=== PATIENT | female | born 1975 | race Caucasian/White ===

== ENCOUNTER 2018-11-11 04:57 | Emergency (ER) | payer MEDICAID ==
[2018-11-11 05:26] LABS: % BASOPHILS 1.2 % (0.0-2.0); % EOSINOPHILS 3.7 % (0.0-5.0); % LYMPHOCYTES 31.9 % (20.0-50.0); % MONOCYTES 5.2 % (2.0-10.0); BASOPHILE ABSOLUTE 0.1 Th/cumm (0-0.2); EOSINOPHILE ABSOLUTE 0.3 Th/cmm (0.1-0.4); HEMATOCRIT 40.7 % (41.0-60); HEMOGLOBIN 14.1 gm/dL (12-16); LYMPHOCYTE ABSOLUTE 2.9 Th/cmm (1.5-3.0); MEAN CELL VOLUME 91.2 fl (81-100); MEAN CORPUSCULAR HEMOGLOBIN 31.6 pg (27.0-31.0); MEAN CORPUSCULAR HGB CONC 34.6 pg (28.0-36.0); MONOCYTE ABSOLUTE 0.5 Th/cmm (0.3-1.0); NEUTROPHILE ABSOLUTE 5.3 Th/cmm (1.8-8.0); PLATELET COUNT 332 Th/cmm (150-400); RED BLOOD COUNT 4.46 Mil/cmm (3.80-5.10); RED CELL DISTRIBUTION WIDTH 12.2 % (11.5-20.0); WHITE BLOOD COUNT 9.1 Th/cmm (4.8-10.8)
[2018-11-11 05:45] LABS: INR 0.9 (0.5-1.4)
[2018-11-11 05:50] LABS: URINE SOURCE CLEAN C
[2018-11-11 05:52] LABS: ALB/GLOB RATIO 1.5 (1.0-1.8); ALBUMIN 4.2 gm/dL (3.7-5.3); ALKALINE PHOSPHATASE 46 U/L (34-104); ANION GAP 11.8 (7.0-16.0); BILIRUBIN,TOTAL 0.4 mg/dL (0.3-1.0); BUN - UREA NITROGEN 13 mg/dL (7-25); CALCIUM SERUM 9.2 mg/dL (8.6-10.3); CHLORIDE 105 mEq/L (98-107); CREATININE - SERUM 0.6 mg/dL (0.6-1.2); GFR AFRICAN-AMERICAN > 60.0 ml/min (>90); GFR NON AFRICAN-AMERICAN > 60.0 ml/min; GLUCOSE 120 mg/dL (70-105); POTASSIUM SERUM 3.8 mEq/L (3.5-5.1); SGOT 17 U/L (13-39); SGPT/ALT 20 U/L (7-52); SODIUM SERUM 135 mEq/L (136-145)
[2018-11-11 05:57] LABS: URINE BILIRUBIN NEGATIVE (NEGATIVE); URINE BLOOD SMALL (NEGATIVE); URINE GLUCOSE (UA) NEGATIVE (NEGATIVE); URINE KETONE NEGATIVE (NEGATIVE); URINE LEUKOCYTE ESTERASE NEGATIVE (NEGATIVE); URINE MICROSCOPIC INDICATED? YES; URINE NITRATE NEGATIVE (NEGATIVE); URINE PH 5.5 (4.6 - 8.0); URINE PROTEIN NEGATIVE (NEGATIVE); URINE UROBILINOGEN 0.2 E.U./dL (0.2 - 1.0)
--- NOTE | 2018-11-11 05:57 | ED Physician Chart ---
ED Chief Complaint/HPI - Patient Information Date Seen:: 11/11/18 Time Seen:: 05:51 Chief Complaint:: rectal bleeding History of Present Illness:: 43 yr old female with acute blood on stool for one day some burning pain but no obvious hemmorhoidal disease denies trauma or previous episodes no vomiting diarhea fever dysuria or vaginal issues Allergies:: Allergies Allergy/AdvReac Type Severity Reaction Status Date / Time No Known Allergies Allergy Verified 11/11/18 05:09 Vitals:: Vital Signs - 8 hr 11/11/18 05:09 Temp 97.8 F HR 68 RR 18 BP 129/72 O2 Sat % 100 ED Review of Systems - Review of Systems Skin: No skin lesions Head: No headache Eyes: No loss of vision ENT: No earache Neck: No neck pain Cardio Vascular: No chest pain GI: No vomiting, No diarrhea, Hematochezia Musculoskeletal: No bone or joint pain Endocrine: No polyuria Psychiatric: No prior psych history Hematopoietic: No bruising Allergic/Immuno: No urticaria Neurological: No syncope Family Medical History - Family Member Mother History Unknown: Yes ED Labs/Radiology/EKG Results - Lab Results Results: Laboratory Tests 11/11/18 05:20 WBC 9.1 RBC 4.46 Hgb 14.1 Hct 40.7 L MCV 91.2 MCH 31.6 H MCHC Differential 34.6 RDW 12.2 Plt Count 332 MPV 7.9 Neutrophils % 58.0 Lymphocytes % 31.9 Monocytes % 5.2 Eosinophils % 3.7 Basophils % 1.2 ED Septic Shock - . Is Septic Shock (SBP<90, OR Lactate>4 mmol\L) present?: No - <6hrs of presentation: Vital Signs: Vital Signs - 8 hr 11/11/18 05:09 Temp 97.8 F HR 68 RR 18 BP 129/72 O2 Sat % 100 ED Reassessment (Disposition) - Reassessment Reassessment:: hematochezia - Diagnosis Diagnosis:: rectal bleeding - Patient Disposition Discharge/Transfer:: Home Condition at Disposition:: Stable
[2018-11-11 06:01] LABS: URINE COLOR YELLOW
[2018-11-11 06:15] LABS: URINE CLARITY SLIGHT HAZY (CLEAR)
[2018-11-11 06:18] LABS: URINE EPITHELIAL CELLS MODERATE /lpf (FEW)
[2018-11-11 06:21] LABS: URINE BACTERIA 2+ /hpf (NONE SEEN)
--- NOTE | 2018-11-11 08:56 | Diagnostic Imaging Report ---
CT scan of the abdomen and pelvis without intravenous contrast History: Rectal bleeding, pain Total DLP equals 513 CTDI equals 10.9 Axial sections were obtained from the xiphoid process down to the pubic symphysis. The liver exhibits a decrease in overall parenchymal density. Findings are consistent with fatty infiltration. The finding should be correlated with liver function tests. No focal lesions. The spleen appears normal. No abnormalities are seen in the region of the pancreas. The kidneys appear normal bilaterally. The exam of the pelvis demonstrates preservation of normal fat planes. No abnormal soft tissue masses. No abnormal fluid collections. Impression: 1. No acute abnormality 2. Hepatic parenchymal changes consistent with fatty infiltration. The finding should be correlated with liver function tests.
== END 2018-11-11 08:37 | disposition home or self-care (01) ==
LOC: ER 04:57
DX: K92.1 Melena (principal); K92.2 Gastrointestinal hemorrhage, unspecified; N20.0 Calculus of kidney; N39.0 Urinary tract infection, site not specified; D64.9 Anemia, unspecified; E87.1 Hypo-osmolality and hyponatremia
CPT/HCPCS: 99284; 74176; 36415; 85025; 85610; 87086; 81001; 80053; J0696